=== PATIENT | male | born 1980 | race Caucasian/White ===

== ENCOUNTER 2017-04-28 15:25 | Observation (INO) | payer BC ==
[2017-04-28] MEDS ORDERED: Aspirin 81 MG Tab.Chew PO ONE (15:29)
[2017-04-28] MEDS ORDERED: Sodium Chloride 0.9% 1,000 ML IV ONE ×2 (15:29→16:16)
--- NOTE | 2017-04-28 15:33 | EDM.PDOC ---
ED HPI GENERAL MEDICAL PROBLEM - General Chief Complaint: Cardiovascular Problem Stated Complaint: CHEST PAIN Time Seen by Provider: 04/28/17 15:31 Source of Information: Reports: Patient - History of Present Illness INITIAL COMMENTS - FREE TEXT/NARRATIVE: HISTORY AND PHYSICAL: History of present illness: Chief complaint racing heart Patient presents by private vehicle apparently as a chiropractic visit as chiropractor stated he could tell the patient's heartbeat was irregular and told him to come or ER for evaluation No fever nausea vomiting chills sweats no chest pain shortness breath headache dizziness palpitation about a urine symptoms Review of systems: As per history of present illness and below otherwise all systems reviewed and negative. Past medical history: As per history of present illness and as reviewed below otherwise noncontributory. Surgical history: As per history of present illness and as reviewed below otherwise noncontributory. Social history: No reported history of drug or alcohol abuse. Family history: As per history of present illness and as reviewed below otherwise noncontributory. Physical exam: HEENT: Atraumatic, normocephalic, pupils reactive, negative for conjunctival pallor or scleral icterus, mucous membranes moist, throat clear, neck supple, nontender, trachea midline. Lungs: Clear to auscultation, breath sounds equal bilaterally, chest nontender. Heart: S1S2, irregular negative for clicks, rubs, or JVD. Abdomen: Soft, nondistended, nontender. Negative for masses or hepatosplenomegaly. Negative for costovertebral tenderness. Pelvis: Stable nontender. Genitourinary: Deferred. Rectal: Deferred. Extremities: Atraumatic, negative for cords or calf pain. Neurovascular unremarkable. Neuro: Awake, alert, oriented. Cranial nerves II through XII unremarkable. Cerebellum unremarkable. Motor and sensory unremarkable throughout. Exam nonfocal. Diagnostics: [Lab as below EKG Chest 1 view ] Therapeutics: [Possible saline bolus Aspirin 324 mg chewable Metoprolol 25 mg by mouth now Patient discussed with Dr. Moreira he'll admit for observation telemetry ] Impression: [Atrial fibrillation rate 102-120] Definitive disposition and diagnosis as appropriate pending reevaluation and review of above. - Related Data Allergies Allergy/AdvReac Type Severity Reaction Status Date / Time Sulfa (Sulfonamide Allergy Hives Verified 04/28/17 15:33 Antibiotics) Home Meds: Home Meds . [No Known Home Meds] 04/28/17 [History] ED ROS GENERAL - Review of Systems Review Of Systems: ROS reveals no pertinent complaints other than HPI. ED EXAM, GENERAL - Physical Exam Exam: See Below Course - Vital Signs Last Recorded V/S: Last Vital Signs Temp 36.3 C 04/28/17 15:27 Pulse 115 H 04/28/17 16:17 Resp 20 04/28/17 16:17 BP 127/81 04/28/17 16:17 Pulse Ox 95 04/28/17 16:17 - Orders/Labs/Meds Orders: Active Orders 24 hr Category Date Time Status EKG Documentation Completion [RC] STAT Care 04/28/17 15:27 Active EKG Documentation Completion [RC] STAT Care 04/28/17 16:34 Active MAGNESIUM [CHEM] Stat Lab 04/28/17 16:56 Ordered Metoprolol Succinate [Toprol XL] Med 04/28/17 16:56 Once 25 mg PO ONETIME ONE Sodium Chloride 0.9% [Normal Saline] 1,000 ml Med 04/28/17 16:16 Active IV STAT Medication Orders Sodium Chloride (Normal Saline) 1,000 mls @ 999 mls/hr IV STAT ONE Stop: 04/28/17 17:16 Last Admin: 04/28/17 16:20 Dose: 999 mls/hr Labs: Laboratory Tests 04/28/17 04/28/17 04/28/17 Range/Units 15:33 15:33 16:09 WBC 7.20 (4.0-11.0) K/uL RBC 5.67 (4.50-5.90) M/uL Hgb 16.9 (13.0-17.0) g/dL Hct 47.8 (38.0-50.0) % MCV 84.3 (80.0-98.0) fL MCH 29.8 (27.0-32.0) pg MCHC 35.4 (31.0-37.0) g/dL RDW Std Deviation 39.6 (28.0-62.0) fl RDW Coeff of Beth 13 (11.0-15.0) % Plt Count 276 (150-400) K/uL MPV 10.00 (7.40-12.00) fL Neut % (Auto) 65.4 (48.0-80.0) % Lymph % (Auto) 25.3 (16.0-40.0) % [place] % (Auto) 7.8 (0.0-15.0) % Eos % (Auto) 1.1 (0.0-7.0) % Baso % (Auto) 0.4 (0.0-1.5) % Neut # (Auto) 4.7 (1.4-5.7) K/uL Lymph # (Auto) 1.8 (0.6-2.4) K/uL [place] # (Auto) 0.6 (0.0-0.8) K/uL Eos # (Auto) 0.1 (0.0-0.7) K/uL Baso # (Auto) 0.0 (0.0-0.1) K/uL Nucleated RBC % 0.0 /100WBC Nucleated RBCs # 0 K/uL Sodium 141 (136-146) mmol/L Potassium 3.8 (3.5-5.1) mmol/L Chloride 108 (98-110) mmol/L Carbon Dioxide 23 (21-31) mmol/L BUN 20 (6.0-23.0) mg/dL Creatinine 1.0 (0.6-1.5) mg/dL Est Cr Clr Drug Dosing 119.71 mL/min Estimated GFR (MDRD) > 60.0 ml/min Glucose 128 H (60-110) mg/dL Calcium 9.4 (8.8-10.8) mg/dL Total Bilirubin 0.6 (0.1-1.5) mg/dL AST 18 (5-40) IU/L ALT 30 (8-54) IU/L Alkaline Phosphatase 85 (40-150) Creatine Kinase 109 (9-236) IU/L CK-MB (CK-2) 1.3 (0-6.6) ng/ml Troponin I < 0.10 (0.0-0.29) NG/ML Total Protein 7.1 (6.0-8.0) g/dL Albumin 4.3 (3.5-5.0) g/dL Globulin 2.8 (2.0-3.5) g/dL Albumin/Globulin Ratio 1.5 (1.3-2.8) Amylase 37 (10-90) U/L Lipase 35 (7-80) U/L Urine Color YELLOW Urine Appearance CLEAR Urine pH 6.0 (5.0-8.0) Ur Specific [place] >= 1.030 (1.001-1.035) Urine Protein TRACE (NEGATIVE) mg/dL Urine Glucose (UA) NEGATIVE (NEGATIVE) mg/dL Urine Ketones NEGATIVE (NEGATIVE) mg/dL Urine Occult Blood TRACE-INTACT (NEGATIVE) Urine Nitrite NEGATIVE (NEGATIVE) Urine Bilirubin NEGATIVE (NEGATIVE) Urine Urobilinogen 0.2 (<2.0) EU/dL Ur Leukocyte Esterase NEGATIVE (NEGATIVE) Urine RBC 0-1 (0-2/HPF) Urine WBC 0-1 (0-5/HPF) Ur Epithelial Cells RARE (NONE-FEW) Urine Bacteria RARE (NEGATIVE) Urine Mucus HEAVY (NONE-MOD) Meds: Medications Generic Name Dose Route Start Last Admin Trade Name Freq PRN Reason Stop Dose Admin Sodium Chloride 1,000 mls @ 999 mls/hr 04/28/17 16:16 04/28/17 16:20 Normal Saline IV 04/28/17 17:16 999 mls/hr STAT ONE Administration Discontinued Medications Generic Name Dose Route Start Last Admin Trade Name Freq PRN Reason Stop Dose Admin Aspirin 324 mg 04/28/17 15:29 04/28/17 15:52 Aspirin PO 04/28/17 15:30 324 mg ONETIME ONE Administration Sodium Chloride 1,000 mls @ 999 mls/hr 04/28/17 15:29 04/28/17 15:52 Normal Saline IV 04/28/17 16:29 999 mls/hr STAT ONE Administration Metoprolol Succinate 25 mg 04/28/17 16:56 Toprol Xl PO 04/28/17 16:57 ONETIME ONE Departure - Departure Time of Disposition: 16:57 Disposition: Refer to Observation Condition: Good Clinical Impression: Atrial fibrillation Forms: ED Department Discharge - My Orders Last 24 Hours: My Active Orders 04/28/17 15:27 EKG Documentation Completion [RC] STAT 04/28/17 16:16 Sodium Chloride 0.9% [Normal Saline] 1,000 ml IV STAT 04/28/17 16:34 EKG Documentation Completion [RC] STAT 04/28/17 16:56 MAGNESIUM [CHEM] Stat Metoprolol Succinate [Toprol XL] 25 mg PO ONETIME ONE - Assessment/Plan Last 24 Hours: My Active Orders 04/28/17 15:27 EKG Documentation Completion [RC] STAT 04/28/17 16:16 Sodium Chloride 0.9% [Normal Saline] 1,000 ml IV STAT 04/28/17 16:34 EKG Documentation Completion [RC] STAT 04/28/17 16:56 MAGNESIUM [CHEM] Stat Metoprolol Succinate [Toprol XL] 25 mg PO ONETIME ONE
[2017-04-28 16:04] LABS: CHLORIDE,CL 108 mmol/L (98-110); SODIUM,NA 141 mmol/L (136-146)
--- NOTE | 2017-04-28 16:06 | CR ---
EXAMINATION: Portable chest radiograph. HISTORY: Pain. FINDINGS: The trachea is midline. The cardiomediastinal silhouette is within normal limits. No pulmonary infilt rates, effusions or pneumothorax. Osseous structures appear unremarkable. IMPRESSION: No acute cardiopulmonary process.
[2017-04-28] MEDS ORDERED: Metoprolol Succinate 25 MG Tab.ER PO ONE (16:56)
[2017-04-28] MEDS ORDERED: Sodium Chloride 0.9% 1,000 ML IV SCH (17:45)
--- NOTE | 2017-04-28 19:56 | PCM.HP ---
H&P History of Present Illness - General Admit Problem/Dx: Admission Diagnosis/Problem Admission Diagnosis/Problem Atrial fibrillation - History of Present Illness Initial Comments - Free Text/Narative: 36 yo male who presents with one day history of intermittent palpitations. He reports the feeling of heart racing with shortness of breath. He denies any chest pain. In the ED he was noted to have a heart rate of 90s to 120s bpm. He was given 2 liters of fluid, ASA, and metoprolol. His heart rate is currently 80 bpm and palpitations have resolved. - Related Data Allergies/Adverse Reactions: Allergies Allergy/AdvReac Type Severity Reaction Status Date / Time Sulfa (Sulfonamide Allergy Hives Verified 04/28/17 15:33 Antibiotics) Home Medications: Home Meds Aspirin 325 mg PO DAILY #30 tablet 04/29/17 [Rx] Metoprolol Succinate [Toprol XL] 50 mg PO DAILY #30 tab.er 04/29/17 [Rx] Past Medical History - Past Health History Medical/Surgical History: Denies Medical/Surgical History Cardiovascular History: Reports: Hypertension Psychiatric History: Reports: Anxiety - Past Surgical History Cardiovascular Surgical History: Reports: None Social & Family History - Family History Family Medical History: Noncontributory - Tobacco Use Smoking Status *Q: Never Smoker Second Hand Smoke Exposure: No - Caffeine Use Caffeine Use: Reports: Soda Caffeine Use Comment: 1drink/day - Recreational Drug Use Recreational Drug Use: No H&P Review of Systems - Review of Systems: Review Of Systems: ROS reveals no pertinent complaints other than HPI. Exam - Exam Exam: See Below - Vital Signs Vital Signs: Last Vital Signs Temp 36.4 C 04/28/17 18:02 Pulse 91 04/28/17 18:02 Resp 18 04/28/17 18:02 BP 136/86 04/28/17 18:02 Pulse Ox 97 04/28/17 18:02 Weight: 114.3 kg - Exam General: Alert, Oriented, 4 HEENT: Mucosa Moist & [place] Neck: Supple Cardiovascular: Regular Rate, Irregular Rhythm GI/Abdominal Exam: Soft, Non-Tender, No Distention Extremities: No Pedal Edema Skin: Warm, Dry, Intact Neurological: No: Focal Deficit - Patient Data Result Diagrams: 04/28/17 15:33 04/28/17 15:33 Imaging Impressions Last 24 hrs: CXR: no acute cardiopulmonary process. *Q Meaningful Use (ADM) - VTE *Q VTE Criteria *Q: - Stroke *Q Stroke Criteria *Q: - AMI *Q AMI Criteria *Q: Problem List Initiated/Reviewed/Updated: Yes Orders Last 24hrs: Active Orders 24 hr Category Date Time Status Antiembolic Devices [RC] PER UNIT ROUTINE Care 04/28/17 19:45 Ordered Intake and Output [RC] QSHIFT Care 04/28/17 19:44 Ordered Oxygen Therapy [RC] PRN Care 04/28/17 19:44 Ordered Telemetry Monitoring [Cardiac Monitoring] [RC] . Care 04/28/17 17:30 Active DIRECTED Up ad Kiesha [RC] ASDIRECTED Care 04/28/17 19:44 Ordered VTE/DVT Education [RC] PER UNIT ROUTINE Care 04/28/17 19:44 Ordered Vital Signs [RC] Q4H Care 04/28/17 19:44 Ordered Regular Diet [DIET] Diet 04/28/17 Breakfast Ordered Echo 2D wo Cont [US] Routine Exams 04/28/17 19:44 Ordered TROPONIN I [CHEM] Q6H Lab 04/28/17 22:00 Ordered TROPONIN I [CHEM] Q6H Lab 04/29/17 04:00 Ordered Metoprolol Succinate [Toprol XL] Med 04/29/17 09:00 Ordered 50 mg PO DAILY Sodium Chloride 0.9% [Normal Saline] 1,000 ml Med 04/28/17 17:45 Active IV STAT Sequential Compression Device [OM.PC] Per Unit Routine Oth 04/28/17 19:45 Ordered Resuscitation Status Routine Resus Stat 04/28/17 19:44 Ordered Medication Orders Sodium Chloride (Normal Saline) 1,000 mls @ 125 mls/hr IV STAT [place] Metoprolol Succinate (Toprol Xl) 50 mg PO DAILY [facility] Assessment/Plan Comment:: 36 yo male admitted for atrial fibrillation with RVR. Metoprolol PO was added. Overnight his heart rate has remained rate controlled with no more episodes of palpitations. Echocardiogram was completed but reported is pending at this time. His CHADvasc2 score is 0. He is being discharged on Metoprolol succinate 50mg daily and aspirin 325mg daily. He is to follow up with Dr. Dyer and Dr. Jones.
[2017-04-29] MEDS ORDERED: Metoprolol Succinate 50 MG Tab.ER PO SCH (09:00)
--- NOTE | 2017-05-03 11:29 | ECHO ---
EXAM DATE: 04/28/17 PATIENT'S AGE: 36 The echocardiogram report can be seen in this patient's EMR (Electronic Medical Record) in the Reports section. The report has also been scanned into PACs. BILL
== END 2017-04-29 11:05 | disposition home or self-care (01) ==
LOC: MW.ED 15:25 → MW.MS 16:59
PROVIDERS: ADMIT Internal Medicine; ATTEND Internal Medicine
DX: I48.91 Unspecified atrial fibrillation (principal); I10 Essential (primary) hypertension; Z88.2 Allergy status to sulfonamides; Z79.82 Long term (current) use of aspirin; Z79.899 Other long term (current) drug therapy
CPT/HCPCS: 36415; 71010; 80053; 81001; 82150; 82550; 82553; 83690; 83735; 84484; 85025; 93005; 93306; 96360; 99285; A9270; J7040; 99282; G0378

== ENCOUNTER 2017-05-04 14:49 | Emergency (ER) | payer BC ==
--- NOTE | 2017-05-04 15:05 | EDM.PDOC ---
ED HPI GENERAL MEDICAL PROBLEM - General Chief Complaint: Cardiovascular Problem Stated Complaint: CHEST PAIN/HBP Time Seen by Provider: 05/04/17 14:54 Source of Information: Reports: Patient History Limitations: Reports: No Limitations - History of Present Illness INITIAL COMMENTS - FREE TEXT/NARRATIVE: History of present illness: []Patient had episode of left jaw pain and sweatiness on the top of his head roughly 45 minutes ago and lasted 10 minutes. He was recently admitted overnight and discharged on April 29 with a diagnosis of atrial fibrillation with RVR and discharged stable with follow-up with Dr. Dyer and Dr. Flores. Dr. Flores is tomorrow. He has some mild chronic shortness of breath and states it has not changed he states he felt a little dizzy had no syncope or chest pain. Review of systems: As per history of present illness and below otherwise all systems reviewed and negative. Past medical history: As per history of present illness and as reviewed below otherwise noncontributory. Surgical history: As per history of present illness and as reviewed below otherwise noncontributory. Social history: No reported history of drug or alcohol abuse. Family history: As per history of present illness and as reviewed below otherwise noncontributory. Physical exam: General: Well developed, well nourished in NAD HEENT: Atraumatic, normocephalic, pupils reactive, negative for conjunctival pallor or scleral icterus, mucous membranes moist, throat clear, neck supple, nontender, trachea midline. Lungs: Clear to auscultation, breath sounds equal bilaterally, chest nontender. Heart: S1S2, regular, negative for clicks, rubs, or JVD. Abdomen: Soft, nondistended, nontender. Negative for masses or hepatosplenomegaly. Negative for costovertebral tenderness. Pelvis: Stable nontender. Genitourinary: Deferred. Rectal: Deferred. Extremities: Atraumatic, negative for cords or calf pain. Neurovascular unremarkable. Neuro: Awake, alert, oriented. Cranial nerves II through XII unremarkable. Cerebellum unremarkable. Motor and sensory unremarkable throughout. Exam nonfocal. Diagnostics: [] Therapeutics: [] Impression: [] Plan: [] Definitive disposition and diagnosis as appropriate pending reevaluation and review of above. - Related Data Allergies Allergy/AdvReac Type Severity Reaction Status Date / Time Sulfa (Sulfonamide Allergy Hives Verified 05/04/17 14:53 Antibiotics) Home Meds: Home Meds Aspirin 325 mg PO DAILY #30 tablet 04/29/17 [Rx] Metoprolol Succinate [Toprol XL] 50 mg PO DAILY #30 tab.er 04/29/17 [Rx] Past Medical History - Past Health History Medical/Surgical History: Denies Medical/Surgical History Cardiovascular History: Reports: Hypertension Psychiatric History: Reports: Anxiety - Past Surgical History Cardiovascular Surgical History: Reports: None Social & Family History - Family History Family Medical History: Noncontributory Cardiac: Reports: [place] Oncologic: Reports: Breast - Tobacco Use Smoking Status *Q: Never Smoker Second Hand Smoke Exposure: No - Caffeine Use Caffeine Use: Reports: Soda Caffeine Use Comment: 1drink/day - Recreational Drug Use Recreational Drug Use: No ED ROS GENERAL - Review of Systems Review Of Systems: See Below (See history of present illness) ED EXAM, GENERAL - Physical Exam Exam: See Below (See history of present illness) Course - Vital Signs Last Recorded V/S: Last Vital Signs Temp 36.6 C 05/04/17 14:53 Pulse 64 05/04/17 14:53 Resp 16 05/04/17 14:53 BP 135/90 05/04/17 14:53 Pulse Ox 100 05/04/17 14:53 - Orders/Labs/Meds Orders: Active Orders 24 hr Category Date Time Status Sodium Chloride 0.9% [Saline Flush] Med 05/04/17 15:10 Active 10 ml FLUSH ASDIRECTED PRN Sodium Chloride 0.9% [Saline Flush] Med 05/04/17 15:10 Active 2.5 ml FLUSH ASDIRECTED PRN Saline Lock Insert [OM.PC] Stat Oth 05/04/17 15:10 Ordered Medication Orders Sodium Chloride (Saline Flush) 10 ml FLUSH ASDIRECTED PRN PRN Reason: Keep Vein Open Sodium Chloride (Saline Flush) 2.5 ml FLUSH ASDIRECTED PRN PRN Reason: Keep Vein Open Labs: Laboratory Tests 05/04/17 Range/Units 15:22 Troponin I < 0.10 (0.0-0.29) NG/ML Meds: Medications Generic Name Dose Route Start Last Admin Trade Name Freq PRN Reason Stop Dose Admin Sodium Chloride 10 ml 05/04/17 15:10 Saline Flush FLUSH ASDIRECTED PRN Keep Vein Open Sodium Chloride 2.5 ml 05/04/17 15:10 Saline Flush FLUSH ASDIRECTED PRN Keep Vein Open Departure - Departure Time of Disposition: 15:49 Disposition: Home, Self-Care 01 Condition: Good Clinical Impression: Jaw pain Forms: ED Department Discharge Additional Instructions: The following information is given to patients seen in the emergency department who are being discharged to home. This information is to outline your options for follow-up care. We provide all patients seen in our emergency department with a follow-up referral. The need for follow-up, as well as the timing and circumstances, are variable depending upon the specifics of your emergency department visit. If you don't have a primary care physician on staff, we will provide you with a referral. We always advise you to contact your personal physician following an emergency department visit to inform them of the circumstance of the visit and for follow-up with them and/or the need for any referrals to a consulting specialist. The emergency department will also refer you to a specialist when appropriate. This referral assures that you have the opportunity for follow-up care with a specialist. All of these measure are taken in an effort to provide you with optimal care, which includes your follow-up. Under all circumstances we always encourage you to contact your private physician who remains a resource for coordinating your care. When calling for follow-up care, please make the office aware that this follow-up is from your recent emergency room visit. If for any reason you are refused follow-up, please contact the [facility] Emergency Department at and asked to speak to the emergency department charge nurse. Keep appointment with Dr. Flores tomorrow as scheduled [facility] [address] [place] [id number] - My Orders Last 24 Hours: My Active Orders 05/04/17 15:10 Sodium Chloride 0.9% [Saline Flush] 10 ml FLUSH ASDIRECTED PRN Sodium Chloride 0.9% [Saline Flush] 2.5 ml FLUSH ASDIRECTED PRN Saline Lock Insert [OM.PC] Stat - Assessment/Plan Last 24 Hours: My Active Orders 10/25/17 15:10 Sodium Chloride 0.9% [Saline Flush] 10 ml FLUSH ASDIRECTED PRN Sodium Chloride 0.9% [Saline Flush] 2.5 ml FLUSH ASDIRECTED PRN Saline Lock Insert [OM.PC] Stat
[2017-05-04] MEDS ORDERED: Sodium Chloride 0.9% 2.5 ML Syringe FLUSH PRN (15:10)
[2017-05-04] MEDS ORDERED: Sodium Chloride 0.9% 10 ML Syringe FLUSH PRN (15:10)
== END 2017-05-04 16:02 | disposition home or self-care (01) ==
LOC: MW.ED 14:49
DX: R68.84 Jaw pain (principal); I10 Essential (primary) hypertension
CPT/HCPCS: 36415; 84484; 93005; 99281; 99284-25